=== PATIENT | female | born 1985 | race Caucasian/White ===

== ENCOUNTER 2018-08-09 04:29 | Emergency (ER) | payer OTHER ==
[~2018-08-09] VITALS: Ht 152.4 cm; Wt 74.8 kg
[2018-08-09] MEDS ORDERED: CYCLOBENZAPRINE5 MG PO (04:59)
[2018-08-09] MEDS ORDERED: MEDROLDOSEPACK PO (04:59)
[2018-08-09] MEDS ORDERED: TORADOL 10 MG T10 MG PO (04:59)
[2018-08-09 05:17] VITALS: BP 182/86
== END 2018-08-09 05:23 | disposition home or self-care (01) ==
LOC: M.ERS 04:29
DX: M54.5 Low back pain (principal); Z98.890 Other specified postprocedural states; Z88.1 Allergy status to other antibiotic agents

== ENCOUNTER 2018-09-04 04:29 | Emergency (ER) | payer OTHER ==
[~2018-09-04] VITALS: Ht 152.4 cm; Wt 72.6 kg
[~2018-09-04 04:29] MED LIST: CYCLOBENZAPRINE5 MG PO; MEDROLDOSEPACK PO; TORADOL 10 MG T10 MG PO
[2018-09-04] MEDS ORDERED: HYDROCODON-ACE1 EAC7 PO (04:45)
[2018-09-04] MEDS ORDERED: FLEXERIL PO (04:45)
[2018-09-04] MEDS ORDERED: IBUPROFEN 800800 MG PO (04:45)
[2018-09-04 04:50] VITALS: BP 183/106
== END 2018-09-04 04:50 | disposition home or self-care (01) ==
LOC: M.ERS 04:29
DX: M54.5 Low back pain (principal); Z88.1 Allergy status to other antibiotic agents; Z98.890 Other specified postprocedural states